=== PATIENT | female | born 1950 | race American Indian/Alaskan Native ===

== ENCOUNTER 2019-10-06 08:59 | Outpatient (CLI) | payer MEDICARE ==
--- NOTE | 2019-10-06 12:51 | Mammography Report ---
UNSUCCESSFUL STEREOTACTIC NEEDLE BIOPSY WITH CLIP PLACEMENT RIGHT BREAST INDICATION: RIGHT ASYMMETRY. COMPARISON: 06/23/2019 and 06/02/2019 mammograms FINDINGS: The patient was placed prone on the stereotactic biopsy table. However, oracle programmer analyst images failed to demons trate a suitable target to correlate with the mammographic abnormality. No other parts of the procedu re were performed. IMPRESSION: 1. Unsuccessful attempt at stereotactic biopsy of the right breast with failure to target a suitable lesion. 2. Recommend short-term (3 month) follow-up right diagnostic mammogram and right breast ultrasound if needed. I discussed the findings and the recommendation for a 3 month follow-up with the patient at the time of the exam. Signer Name: Js Teixeira MD Signed: 10/06/2019 12:47 PM Workstation Name: [id number]
== END 2019-10-06 09:00 | disposition home or self-care (01) ==
LOC: SPVWC 08:59
PROVIDERS: ATTEND Surgery
DX: R92.1 Mammographic calcification found on diagnostic imaging of breast (principal)

== ENCOUNTER 2020-01-13 08:29 | Outpatient (CLI) | payer MEDICARE ==
--- NOTE | 2020-01-13 10:09 | Ultrasound Report ---
EXAMINATION: Right Complete Breast Ultrasound, 01/13/2020 INDICATION: Shouldn't has a history of abnormal right mammogram, manifested by right breast calcifications. By re port, stereotactic guided biopsy was attempted but was not successful due to failure to adequately vi sualize the targeted area of interest. The patient reports no new symptoms on today's evaluation. COMPARISON: Right diagnostic mammogram, 12/30/2019. Right breast ultrasound, 09/23/2019. Diagnostic mammogram, 020. Screening mammogram, 06/02/2019 FINDINGS: Complete sonographic evaluation of all 4 quadrants and retroareolar region was performed. Sonographic evaluation of the right breast demonstrates no evidence of suspicious solid mass or shado wing. A 3 mm retroareolar cyst is incidentally noted. The right axilla shows no focal abnormality. IMPRESSION: Follow up recommendation: Short term follow up in 6 months. BI-RADS Category 2: Benign. No sonographic abnormality of the right breast. Please note that a follo w-up right diagnostic mammogram in 6 months has been recommended to assess continued stability of the right breast calcifications which were noted to have a benign morphology. A normal or "negative" report should not preclude biopsy or follow-up of a clinically suspicious find ing. Signer Name: Yecenia Reid MD Signed: 01/13/2020 10:04 AM Workstation Name: [id number]
== END 2020-01-13 08:30 | disposition home or self-care (01) ==
LOC: SPVWC 08:29
PROVIDERS: ATTEND Surgery
DX: N60.01 Solitary cyst of right breast (principal)

== ENCOUNTER 2020-06-06 09:15 | Outpatient (CLI) | payer MEDICARE ==
--- NOTE | 2020-06-06 10:09 | Mammography Report ---
DIGITAL SCREENING MAMMOGRAM WITH CAD, 06/06/2020 CLINICAL INFORMATION / INDICATION: Routine screening mammography. TECHNIQUE: Digital bilateral 2D mammography was obtained in the craniocaudal and mediolateral obliqu e projections. This examination was interpreted with the benefit of Computer-Aided Detection analysis . COMPARISON: 06/02/2019 FINDINGS: Breast Density: There are scattered areas of fibroglandular density. No dominant mass, suspicious calcifications, or architectural distortion in either breast. IMPRESSION: No mammographic evidence of malignancy. Follow up recommendation: Routine yearly BI-RADS Category 1: Negative. A "normal" or negative report should not discourage follow up or biopsy of a clinically significant f inding. A written summary of these findings will be mailed to the patient. The patient will be entered into a mammography reporting system which will generate a reminder letter for the patient's next appointmen t at the appropriate interval. The [employer] recommends yearly mammograms starting at age 40 and continuing as l gaurav as a woman is in good health. Breast MRI is recommended for women with an approximate 20-25% or greater lifetime risk of breast cancer, including women with a strong family history of breast or ova eliseo cancer or who have been treated for Hodgkin's disease. Signer Name: Preston Santoyo MD Signed: 06/06/2020 10:04 AM Workstation Name: [id number]
--- NOTE | 2020-06-06 12:37 | Mammography Report ---
DIGITAL DIAGNOSTIC MAMMOGRAM WITH CAD CONVENTIONAL, 06/06/2020 CLINICAL INFORMATION / INDICATION: Follow-up calcifications TECHNIQUE: Digital right mammographic imaging was performed. Magnification views were obtained. This examination was interpreted with the benefit of Computer-aided Detection analysis. COMPARISON: 12/30/2019, all 06/23/2019, 06/02/2019 FINDINGS: Breast Density: There are scattered areas of fibroglandular density. No dominant mass, suspicious calcifications or architectural distortion in the right breast. Minimal calcifications are stable. IMPRESSION: No mammographic evidence of malignancy. Follow up recommendation: Routine BI-RADS Category 2: Benign. A "normal" or negative report should not discourage follow up or biopsy of a clinically significant f inding. A written summary of these findings will be mailed to the patient. The patient will be entered into a mammography reporting system which will generate a reminder letter for the patient's next appointmen t at the appropriate interval. According to the [employer], yearly mammograms are recommended starting at age 40 and continuing as long as a woman is in good health. Breast MRI is recommended for women with an jimi roximately 20-25% or greater lifetime risk of breast cancer, including women with a strong family his tory of breast or ovarian cancer and women who have been treated for Hodgkin's disease. Signer Name: Preston Santoyo MD Signed: 06/06/2020 12:33 PM Workstation Name: [id number]
== END 2020-06-06 09:16 | disposition home or self-care (01) ==
LOC: SPVWC 09:15
PROVIDERS: ATTEND Surgery
DX: Z12.31 Encounter for screening mammogram for malignant neoplasm of breast (principal); R92.1 Mammographic calcification found on diagnostic imaging of breast
CPT/HCPCS: 77067

== ENCOUNTER 2020-06-20 12:38 | Outpatient (CLI) | payer MEDICARE ==
--- NOTE | 2020-06-20 13:53 | Ultrasound Report ---
ULTRASOUND BREAST RIGHT COMPLETE, 06/20/2020 CLINICAL INFORMATION / INDICATION: Patient has history of prior abnormal right mammogram. TECHNIQUE: Complete sonographic evaluation of all 4 quadrants and retroareolar region was performed. COMPARISON: Prior mammogram 06/06/2020 and right breast ultrasound 01/13/2020 FINDINGS: Complete ultrasound of the right breast reveals an incidental 3 mm benign intramammary lymph node in the 9:00 position located 7 cm from the nipple and mild benign duct ectasia in the 10:00 subareolar p osition. No suspicious cystic or solid lesion identified. A morphologically normal lymph node is seen in the right axilla. IMPRESSION: 1. No suspicious sonographic abnormality identified in the right breast. Follow up recommendation: Back to schedule. BI-RADS Category 2: Benign. A normal or "negative" report should not preclude biopsy or follow-up of a clinically suspicious find ing. Signer Name: Monisha Escalante MD Signed: 06/20/2020 1:48 PM Workstation Name: [id number]
== END 2020-06-20 12:39 | disposition home or self-care (01) ==
LOC: SPVWC 12:38
PROVIDERS: ATTEND Surgery
DX: N60.41 Mammary duct ectasia of right breast (principal)